=== PATIENT | male | born 1950 | race Caucasian/White ===

== ENCOUNTER 2016-06-30 11:58 | Observation (INO) | payer BC ==
[~2016-06-30] VITALS: Ht 177.8 cm; Wt 111.6 kg
--- NOTE | ~2016-06-30 | HP ---
PATIENT'S NAME: ANNMARIE SALCIDO [facility] AGE: 65 Y [address] ROOM: [place] [id number] [place] [facility] [place]: 06/30/2016 History & Physical DISCHARGE DATE: FAMILY PHYSICIAN: Spencer Allen MD ATTENDING PHYSICIAN: Jones Ramos DATE OF SERVICE: The patient will be in tomorrow 06/30. CHIEF COMPLAINT: Increasing voiding symptoms. HISTORY OF PRESENT ILLNESS: This is a 65-year-old gentleman with multiple urologic diagnoses. His main complaint currently is his progressive voiding symptoms refractory to medical management. He is miserable with his voiding pattern. He has been on alpha johanny. He is not happy with it. At day time frequency with incontinence. It is primarily postvoid dribbling. He does wear CleanX or toilet paper in shorts to help with dribbling incontinence. Other issues that we follow include his erectile dysfunction, hypogonadism, Peyronie's disease, etc. He has multiple risk factors including his obesity. He is 5 feet 10 inches, 245 pounds. He also has hypertension and hyperlipidemia. Blood pressure medication is Benicar. With his severe bother score and his lack of improvement on medical management, presents this time for cystoscopy and transurethral resection/vaporization of his prostate. PAST MEDICAL HISTORY: Much of it is as alluded to above. In addition to his elevated blood pressure and lipids, he has had bilateral knee replacements and shoulder surgery. MEDICATIONS: 1. Flomax and Benicar as above. 2. He also takes calcium and fish oil. ALLERGIES: NO MEDICAL ALLERGIES. HE DOES COMPLAIN OF SEASONAL ALLERGIES. FAMILY HISTORY: Noncontributory. PATIENT'S NAME: ANNMARIE SALCIDO [facility] AGE: 65 Y [address] ROOM: [place], [place] [address] [place]: [facility] [place]: 06/30/2016 History & Physical DISCHARGE DATE: FAMILY PHYSICIAN: Spencer Allen MD ATTENDING PHYSICIAN: Jones Ramos SOCIAL HISTORY: He is and lives with his here in [place]. He [place] [employer]. He does not drink or smoke. PHYSICAL EXAMINATION: GENERAL: This is a pleasant 65-year-old gentleman, who was in no distress. VITAL SIGNS: Blood pressure is 136/86 with a pulse of 56. As noted, he is obese with 5 feet 10 inches, 245 pounds. HEART: Regular. LUNGS: Clear. ABDOMINAL: Remarkable for obesity. : Reveals normal external genitalia. He really does not have significant palpable Peyronie's plaque at this time. He does retain a bit urine with bladder scan residual of just over 100 mL. Digital rectal exam is consistent with BPH. He had a PSA, that was 2.9 and not significantly changed from previous. EXTREMITIES: No clubbing, cyanosis, or edema. IMPRESSION: Benign prostatic hypertrophy, bladder obstruction with severe symptoms as outlined above and lack of response to medical management. PLAN: Cystoscopy and transurethral resection/vaporization of his prostate. The patient understands the plan as well as the attendant risks and benefits. He has had his questions answered, and he wishes to proceed. JONES RAMOS MD [facility]/modl /[id number] CC: Spencer Allen MD D: [id number] T: [id number] HISTORY & PHYSICAL
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
[~2016-06-30 11:58] MED LIST: AMOXICILLIN500 MG PO; BENICAR HCT 401 EACH PO; CALCIUM WITH V1 EAC1 PO; CRESTOR10 MG PO; FISH OIL + D31 EACH PO; FLOMAX0.4 MG PO
[2016-06-30 13:05] LABS: BASOPHIL % 0.6 %; EOSINOPHIL # 0.2 K/uL (0.0-0.5); EOSINOPHIL % 3.3 %; HEMATOCRIT 42.2 % (37.0-53.0); HEMOGLOBIN 14.1 g/dL (11.0-16.0); IMMATURE GRANULOCYTE % 0.6 %; LYMPHOCYTE # 2.2 K/uL (0.8-4.0); LYMPHOCYTE % 33.3 %; MCH 28.7 pg (27.0-34.0); MCHC 33.4 gm/dL (32.0-36.5); MCV 85.8 fl (83.0-98.0); MONOCYTE # 0.5 K/uL (0.0-1.0); MPV 9.2 fl (9.4-12.4); NEUTROPHIL # (ANC) 3.6 K/uL (1.4-9.0); NEUTROPHIL % 54.2 %; NRBC % 0 /100WBC (0-0.00); PLATELET COUNT 226 K/uL (150-450); RBC 4.92 M/uL (3.50-5.50); RDW-CV 13.7 % (11.9-14.6); WBC 6.6 K/uL (4.0-11.0)
[2016-06-30 13:27] LABS: ALBUMIN 3.3 gm/dL (3.5-5.0); ALK PHOS 51 IU/L (33-138); ALT 39 IU/L (12-78); BLOOD UREA NITROGEN 15 mg/dL (6-24); CALCIUM 8.7 mg/dL (8.5-10.5); CHLORIDE 106 mMol/L (96-110); CO2 28 mMol/L (22-32); ESTIMATED GFR (MDRD EQUATION) > 60; SODIUM 142 mMol/L (135-145); TOTAL BILIRUBIN 0.4 mg/dL (0.0-1.5); TOTAL PROTEIN 6.8 g/dL (6.0-8.4)
[2016-06-30 13:29] LABS: ANION GAP 11.8 (10.0-19.0); AST 27 IU/L (10-40); POTASSIUM 3.8 mMol/L (3.7-5.1)
--- NOTE | 2016-06-30 19:27 | NUR ---
Significant Event:Here from PACU at 1700.IS A/O.O2 on at 2L/NC.Has chanel and CBI running at slow drip draining very lt.pink tinged.Has feeling of having to urinate all the time & some bladder pressure.No N/V.Had Nucyenta like around 1800. Follow up:
--- NOTE | 2016-07-01 05:16 | NUR ---
Significant Event: Pt A&Ox3. POD #1 of TURP. CBI running, have tried to turn down flow. Currently salmon colored. Drinking fine. Have not had any solid foods, but has been tolerating liquids with no problems. Vital signs stable, on 1-2L nc d/t pt having suspected GURPREET. Fine on RA while awake. Pain is tolerable and states it is getting better. Last gave Nucynta @ 0151. Have not given [place] recently or B&O at all. Pt states positioning helps with pain. Had bedrest overnight. PIV in Lt hand, SL. Follow up: Continue plan of care. Try to wean off CBI. To d/c home with supportive .
--- NOTE | 2016-07-01 14:45 | NUR ---
PT C/O'S OF DISCOMFORT IN BLADDER AT 1300. CBI IRRIGATED WITH SMALL CLOTS IN RETURN. TRANSFERED TO THE RECLINER AND CBI OPENED UP WITH LT PINK RETURN. PT STATS RELIEF AFTER IRRIGATION. DR RAMOS NOTIFIED DURING HIS ROUNDS AT 1430.
--- NOTE | 2016-07-01 16:29 | NUR ---
Significant Event: PT ALERT AND ORIENTED. UP IN THE RECLINER THIS SHIFT ZACK WELL. CBI CONT TO IRRIGATE BLADDER. PT HAD A BLADDER SPASM THIS SHIFT. IRRIGATED BUT SMALL CLOTS RETRACTED. DRAINS LT PINK RETURN. 1200 FLUID 800 URINE. PT TAKES [place] FOR PAIN LAST AT 1203. IN THE ROOM AT INTERVALS UNSURE OF DISCHARGE DATE. Follow up:
--- NOTE | 2016-07-02 05:14 | NUR ---
Significant Event: Pt A&Ox3. Vital signs stable, remains on RA. POD #2 of TURP. Urine is very light pink and mostly yellow. Bag marked on how much was claimed for [id number] I&O. Gave 1 [place] @ 3542. Pain has been adequately controlled. No c/o bladder spasms this shift. PIV Lt hand, SL. Possible d/c today? Follow up: Discharge needs met. Continue with plan of care.
--- NOTE | 2016-07-02 11:50 | NUR ---
A/OX3, COOPERATIVE WITH CARES. PATIENT DISCHARGED HOME TODAY, ALL BELONGINGS TAKEN WITH PATIENT. IV D/C BY Jeo BE RN. LS CLEAR THROUGHOUT, ABD. SOFT AND NONTENDER WITH BS X4 QUADS. EVANGELINA DISCONTINUED THIS AM, VOIDS WITHOUT DIFFICULTIES. NO C/O PAIN.
== END 2016-07-02 10:45 | disposition disaster alternative care site (69) ==
LOC: GSDC 11:58 → GMSU 11:58 → GSDC 12:00 → GMSU 16:57 → GSDC 07-01 16:45 → GMSU 07-02 10:45
PROVIDERS: ADMIT Urology
PROC: 0V508ZZ Destruction of Prostate, Via Natural or Artificial Opening Endoscopic (ICD-10-PCS; principal; 2016-06-30)
DX: N40.1 Benign prostatic hyperplasia with lower urinary tract symptoms (principal); N13.8 Other obstructive and reflux uropathy; I10 Essential (primary) hypertension; E78.5 Hyperlipidemia, unspecified; E66.9 Obesity, unspecified; Z68.34 Body mass index [BMI] 34.0-34.9, adult
CPT/HCPCS: G0378; J1956; J3010; J7030